=== PATIENT | male | born 1955 | race Caucasian/White ===

== ENCOUNTER 2017-08-14 09:33 | Emergency (ER) | payer BC ==
[~2017-08-14] VITALS: Ht 180.3 cm; Wt 90.7 kg
[~2017-08-14 09:33] MED LIST: ASPIRIN81 MG PO; CHANTIX1 EACH; DIOVAN HCT 1601 EACH PO; LEVOFLOXACIN500 MG PO; METRONIDAZOLE500 MG PO; TAMSULOSIN HCL0.4 MG PO
--- OUTSIDE RECORDS SUMMARY | 2017-08-14 09:37 | XMS REPORT | Clinical Summary ---
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 Disp. Refills Start End Date Status Date finasteride (PROSCAR) 5 Take 5 mg by mouth daily. Active mg tablet tamsulosin (FLOMAX) 0.4 Take 0.4 mg by mouth Active mg capsule,extended daily. release 24hr esomeprazole (NexIUM) 40 Take 40 mg by mouth as Active MG capsule needed. valsartan-hydrochlorothia TAKE ONE TABLET BY MOUTH 30 tablet 0 08/14/19 Discontin zide (DIOVAN-HCT) ONCE DAILY 16 17 ued 160-12.5 mg per tablet valsartan-hydrochlorothia TAKE ONE TABLET BY MOUTH 30 tablet 0 08/14/19 Discontin zide (DIOVAN-HCT) ONCE DAILY 17 17 ued 160-12.5 mg per tablet aspirin (ECOTRIN) 81 MG Take 81 mg by mouth 04/06/20 Discontin enteric coated tablet daily. 17 ued valsartan-hydrochlorothia Take 1 tablet by mouth 90 tablet 4 08/14/19 04/06/20 Discontin zide (DIOVAN-HCT) once daily. 17 17 ued 160-12.5 mg per tablet carvedilol (COREG) 3.125 Take 1 tablet (3.125 mg 60 tablet 0 04/06/20 04/06/20 Discontin MG tablet total) by mouth 2 (two) 17 17 ued times a day for 30 days. valsartan (DIOVAN) 160 MG Take 1 tablet (160 mg 30 tablet 0 04/07/20 04/06/20 Discontin tablet total) by mouth daily for 17 17 ued 30 days. atorvastatin (LIPITOR) 80 Take 1 tablet (80 mg 30 tablet 0 04/06/20 05/06/20 MG tablet total) by mouth nightly 17 17 for 30 days. clopidogrel (PLAVIX) 75 Take 1 tablet (75 mg 30 tablet 0 04/07/20 Discontin mg tablet total) by mouth daily for 17 17 ued 30 days. clopidogrel (PLAVIX) 75 Take 1 tablet (75 mg 30 tablet 4 04/07/20 mg tablet total) by mouth daily for 17 17 30 days. carvedilol (COREG) 3.125 Take 1 tablet (3.125 mg 60 tablet 4 04/06/20 05/06/20 MG tablet total) by mouth 2 (two) 17 17 times a day for 30 days. aspirin (ECOTRIN) 81 MG Take 1 tablet (81 mg 30 tablet 4 04/06/20 enteric coated tablet total) by mouth daily for 17 17 30 days. valsartan (DIOVAN) 160 MG Take 1 tablet (160 mg 30 tablet 4 04/07/20 05/07/20 tablet total) by mouth daily for 17 17 30 days. Active Problems Problem Noted Date Chest pain 05/06/2017 Hyperlipidemia 05/06/2017 Palpitations 05/06/2017 Non-ST elevation (NSTEMI) myocardial infarction 04/03/2017 Coronary artery disease involving knik coronary artery of knik heart 09/2016 without angina pectoris Essential hypertension 08/19/2016 PAD (peripheral artery disease) 08/19/2016 Encounters Date Type Specialty Care Team Description 05/06/2017 Office Visit Cardiology Bryant Qiu MD Coronary artery disease with angina pectoris, unspecified vessel or lesion type, unspecified whether knik or transplanted heart (Primary Dx); Essential hypertension; CAD S/P percutaneous coronary angioplasty 04/13/2017 Telephone Cardiology Bryant Qiu MD PER DR QIU PT CAN RETURN TO WORK IN 2 WEEKS. 04/05/2017 Procedure Pass Procedural Cardiology 04/05/2017 Surgery Procedural Cardiology Philip Trujillo MD Cv selective coronary angiography [39873 (CPT )] 04/03/2017 Hospital Intensive Care Aracely Lewis MD Non-ST elevation (NSTEMI) - Encounter Sean Salamanca MD myocardial infarction 04/06/2017 (Primary Dx); Unstable angina 08/13/2016 Office Visit Cardiology Byrant Qiu MD Essential hypertension (Primary Dx); Coronary artery disease involving knik coronary artery of knik heart without angina pectoris; PAD (peripheral artery disease) after 08/13/2016 Family History Medical History Relation Name Comments Heart disease Father Stroke Father COPD Paternal Grandfather Heart disease Paternal Grandmother Relation Name Status Comments Brother Father Mother Paternal Grandfather Paternal Grandmother Sister Social History Tobacco Use Types Packs/Day Years Used Date Current Every Day Smoker Cigarettes 0.5 45 Smokeless Tobacco: Never Used Tobacco Cessation: Ready to Quit: Yes; Counseling Given: Yes Alcohol Use Drinks/Week oz/Week Comments Yes 6 Cans of 4.8 beer 2 Shots of liquor Sex Assigned at Date Recorded Not on file Last Filed Vital Signs Vital Sign Reading Time Taken Blood Pressure 112/70 05/06/2017 9:05 AM PLASTIC BLOCK BOILER RELINER Pulse 73 05/06/2017 9:05 AM PLASTIC BLOCK BOILER RELINER Temperature 36.4 C (97.5 F) 04/06/2017 8:00 AM PLASTIC BLOCK BOILER RELINER Respiratory Rate 16 05/06/2017 9:05 AM PLASTIC BLOCK BOILER RELINER Oxygen Saturation 93% 04/06/2017 10:00 AM PLASTIC BLOCK BOILER RELINER Inhaled Oxygen - - Concentration Weight 90.7 kg (200 lb) 05/06/2017 9:05 AM PLASTIC BLOCK BOILER [employer]INER Height 180.3 cm (5' 11") 05/06/2017 9:05 AM PLASTIC BLOCK BOILER RELINER Body Mass Index 27.89 05/06/2017 9:05 AM PLASTIC BLOCK BOILER RELINER Plan of Treatment Date Type Specialty Care Team Description 10/28/2017 Office Visit Cardiology Bryant Qiu MD [address] [address] Health Maintenance Due Date Last Done Comments COLONOSCOPY 2003 ZOSTER VACCINE 2013 INFLUENZA VACCINE 12/15/2016 Implants Implanted Type Area Blood Donor Unit Assistant Device Expiration Model / Identifier Date Serial / Lot Stent Coronary Syst Synergy (Mr) Coronary N/A: N/A BSC 01/15/2018 [id number] 3.50mm X 16mm - [id number] Stents INTERVENTIONAL [id number] / Implanted: Qty: 1 on 04/05/2017 by CARDIOLOGY / Philip Trujillo MD [id number] Procedures Procedure Name Priority Date/Time Associated Diagnosis Comments CV PCI Routine 04/05/2017 Results for this 2:10 PM P[employer]IC BLOCK BOILER [employer]INER procedure are in the results section. CV SELECTIVE CORONARY Routine 04/05/2017 Results for this ANGIOGRAPHY 2:10 PM P[employer] BO[employer]ER [employer]INER procedure are in the results section. LA CRITICAL CARE, E/M Routine 04/04/2017 Results for this 30-74 MINUTES 2:38 PM PLASTIC BLOCK BOILER RELINER procedure are in the results section. ECHOCARDIOGRAM 2D STAT 04/04/2017 Results for this COMPLETE W MMODE SPECTRAL 12:19 PM PLASTIC BLOCK BOILER RELINER procedure are in the COLOR DOPPLER (83355) results section. after 08/13/2016 Results * ECG 12 lead (05/06/2017 9:06 AM) Only the most recent of 8 results within the time period is included. Component Value Ref Range Ventricular rate 68 Atrial rate 68 LA interval 172 QRSD interval 94 QT interval 414 QTC interval 440 P axis 1 38 QRS axis 1 -41 T wave axis 91 EKG impression Normal sinus rhythm-Left axis deviation-T wave abnormality, consider anterolateral ischemia-Abnormal ECG-In automated comparison with ECG of 05-APR-2017 21:17,-T wave inversion less evident in Lateral leads-QT has shortened- Specimen Performing Laboratory [facility] [address] [place] [address] * Estimated GFR (04/06/2017 4:00 AM) Only the most recent of 4 results within the time period is included. Component Value Ref Range GFR Non Af Amer >90 mL/min/1.73 m2 GFR Af Amer >90 mL/min/1.73 m2 Comment: Chronic kidney disease: <60 mL/min/1.73m2 Kidney failure: <15 mL/min/1.73m2 The estimated GFR is calculated from the IDMS-traceable Modification of Diet in Renal Disease Equation. The accuracy of the calculation is poor when the creatinine is normal. Calculated values >90 mL/min/1.73m2 are not reported. This equation has not been validated in children (<18 years), women, the elderly (>70 years), or ethnic groups other than Caucasians and Americans. Specimen Performing Laboratory Plasma specimen [facility] DEPARTMENT OF PATHOLOGY AND GENOMIC MEDICINE [address] [place] [id number] * CBC with platelet and differential (04/06/2017 4:00 AM) Only the most recent of 5 results within the time period is included. Component Value Ref Range WBC 7.35 4.50 - 11.00 k/uL RBC 4.33 (L) 4.40 - 6.00 m/uL HGB 13.5 (L) 14.0 - 18.0 g/dL HCT 39.6 (L) 41.0 - 51.0 % MCV 91.5 82.0 - 100.0 fL MCH 31.2 27.0 - 34.0 pg MCHC 34.1 31.0 - 37.0 g/dL RDW - SD 41.2 37.0 - 55.0 fL MPV 10.4 8.8 - 13.2 fL Platelet count 149 (L) 150 - 400 k/uL Nucleated RBC 0.00 /100 WBC Neutrophils 76.7 (H) 39.0 - 69.0 % Lymphocytes 15.8 (L) 25.0 - 45.0 % Monocytes 5.7 0.0 - 10.0 % Eosinophils 1.2 0.0 - 5.0 % Basophils 0.3 0.0 - 1.0 % Immature granulocytes 0.3Comment: "Immature granulocytes" 0.0 - 1.0 % (promyelocytes, myelocytes, metamyelocytes) Specimen Performing Laboratory Blood [facility] DEPARTMENT OF PATHOLOGY AND GENOMIC MEDICINE [address] [place], [place] [id number] * Phosphorus level (04/06/2017 4:00 AM) Only the most recent of 2 results within the time period is included. Component Value Ref Range Phosphorus 3.1 2.4 - 4.5 mg/dL Specimen Performing Laboratory Plasma specimen [facility] DEPARTMENT OF PATHOLOGY AND GENOMIC MEDICINE [address] [place] [id number] * Magnesium level (04/06/2017 4:00 AM) Only the most recent of 3 results within the time period is included. Component Value Ref Range Magnesium 1.9 1.6 - 2.4 mg/dL Specimen Performing Laboratory Plasma specimen [facility] DEPARTMENT OF PATHOLOGY AND GENOMIC MEDICINE [address] [place], [place] [id number] * Comprehensive metabolic panel (04/06/2017 4:00 AM) Only the most recent of 4 results within the time period is included. Component Value Ref Range Sodium 137 135 - 148 mEq/L Potassium 4.2 3.5 - 5.0 mEq/L Chloride 100 98 - 112 mEq/L CO2 21 (L) 24 - 31 mEq/L Anion gap 16 (H) 7 - 15 mEq/L Comment: Starting from August , anion gap calculation no longer incorporates potassium. Please note the change. BUN 11 8 - 23 mg/dL Creatinine 0.8 0.7 - 1.2 mg/dL Glucose 84 65 - 99 mg/dL Calcium 8.8 8.8 - 10.2 mg/dL Protein 5.7 (L) 6.3 - 8.3 g/dL Comment: 4.6-7.0 g/dL 1 week 4.4-7.6 g/dL 7 months-1year 5.1-7.3 g/dL 1-2 years 5.6-7.5 g/dL >3 years 6.0-8.0 g/dL 18-150 6.3-8.3 g/dL Albumin 3.1 (L) 3.5 - 5.0 g/dL A/G ratio 1.2 0.7 - 3.8 Alkaline phosphatase 48 40 - 129 U/L AST 26 10 - 50 U/L ALT 12 5 - 50 U/L Total bilirubin 0.6 0.0 - 1.2 mg/dL Specimen Performing Laboratory Plasma specimen [facility] DEPARTMENT OF PATHOLOGY AND GENOMIC MEDICINE [address] [place] [address] * Cv phlebotomist medical lab assistant procedure (04/05/2017 2:10 PM) Specimen Performing Laboratory [facility] [address] [place] [address] Narrative LM: patent LAD: 90% ISR prox LAD, 40% mid LAD. S/p LAD PCI with 3 x 15mm Synergy LANCE. LCx: minimal luminal irregularities RCA: minimal luminal irregularities Plan: Clopidogrel 600mg x1 in phlebotomist medical lab assistant Continue DAPT + statin F/u Dr Qiu in clinic Moderate sedation was administered with physician supervisionof patient consciousness, respiration, Oxygen saturation and CO2 monitoring, beginning [id number] ( time)for a total period of 64 minutes. I was physically present for the critical portions of all procedures performed during this episode of care. * POC ACT (04/05/2017 1:35 PM) Component Value Ref Range Activated clotting time, 388 seconds POC Specimen Performing Laboratory Blood * Anti Xa, unfractionated (04/05/2017 10:19 AM) Only the most recent of 5 results within the time period is included. Component Value Ref Range Anti Xa, unfractionated 0.39Comment: Therapeutic Range: 0.30 - 0.70 U/mL 0.30 - 0.70 U/mL Specimen Performing Laboratory Blood [facility] DEPARTMENT OF PATHOLOGY AND GENOMIC MEDICINE [address] [place] [address] * CRITICAL CARE (04/04/2017 2:38 PM) Narrative Aracely Lewis MD 04/04/20172:38 PM Critical Care Performed by: ARACELY LEWIS Authorized by: ARACELY LEWIS Critical care provider statement: Critical care time (minutes):50 Critical care time was exclusive of:Separately billable procedures and treating other patients and teaching time Critical care was necessary to treat or prevent imminent or life-threatening deterioration of the following conditions:Cardiac failure Critical care was time spent personally by me on the following activities:Blood draw for specimens, development of treatment plan with patient or surrogate, discussions with consultants, discussions with primary provider, evaluation of patient's response to treatment, examination of patient, interpretation of cardiac output measurements, obtaining history from patient or surrogate, ordering and performing treatments and interventions, ordering and review of laboratory studies, ordering and review of radiographic studies, pulse oximetry, re-evaluation of patient's condition, review of old charts and transcutaneous pacing Florencio 'yes' if you are taking over critical care for this patient from another provider.: no * Echocardiogram 2d complete with contrast (04/04/2017 12:19 PM) Specimen Performing Laboratory [facility] [address] [place] [address] Narrative Echocardiography Report [address] [place] [address] Pat.Name:Danica CAMPBELL.ID:[id number] .Date: 04/04/2017Refer.MD:SEAN SALAMANCA MD Exam Time: 7:54:00 AMStudy Type:Routine Echo Height:71inBSA: 2.12 m2 DOBAge:1955,61Y Sex: MALE BP:130/76HR: 62 bpm Sonogrphr: YAA Shrestha Pat. Stat.:Inpatient Room:[place] [address] Study Status:Final Echo Event ID:[id number] Order ID:[id number] Reason for Study:Ventricular Function after ACS - Re-eval of ventricular frunction following ACS during recovery phase when results will guide therapy History / Clinical:Chest Pain, Hypertension, Shortness of Breath, [place] Procedures:2D Echo, Colorflow Doppler, Portable, Strain, Stat, Intravenous Definity Contrast Race:White SUMMARY: LV size is normal. LV EF is lower limits of normal. Estimated EF is 50-54%. Regional wall motion abnormalities. RV size is normal. RV systolic function is normal. Diastolic dysfunction Grade I (Mild): Impaired relaxation with normal LV filling pressures. Estimated PA systolic pressure is 29 mmHg, assuming a mean RAP of 5 mmHg. FINDINGS: LV: LV size is normal. Concentric left ventricular remodeling. LVEF is lower limits of normal. Regional wall motion abnormalities. Estimated EF is 50-54%. LV global longitudinalstrain is mild to moderately impaired at -14.1%. RV: RV size is normal. RV systolic function is normal. LA: LA size is normal. RA: RA size is normal. AO: Aortic root diameter is normal. ALEX: No pericardial effusion. IAS:Interatrial septum is redundant. AV: No structural AV abnormalities noted. MV: Mild mitral annular calcification. PV: No structural PV abnormalities noted. A trace of pulmonic regurgitation. TV: No structural TV abnormalities noted. A trace of tricuspid regurgitation Braxton: Diastolic dysfunction Grade I (Mild): Impaired relaxation withnormal LV filling pressures. Other:Estimated PA systolic pressure is 29 mmHg, assuming a mean RAPof 5 mmHg. MEASUREMENTS: 2D Parasternal Long [place] LVOT 2.1 cmLA Ds 3.6 cm LVIDd4.6 cmIndex 2.2 cm/m Ao An2.5 cm LVIDs3.1 cmAo Rtd 4.1 cm Index1.9 cm/m LV%fs 32.6 % LV Otcb342.9 g(122-174) IVSd 1.2 cmLVM Index 106.1 g/m2 LVPWd1.3 cmRWT 0.6 LA Sng Plane LA Area 18.7 cm2(8.8-23.4) LA Vol52.9 ml Index25 ml/m LA LngAx 5.4 cm RA Sng Plane RA Area 14.5 cm2(8.3-19.5) RA Vol31.2 ml Index14.7 ml/m RA LngAx 5.9 cm WALL MOTION: RESTING WALL MOTION: Mid Anteroseptal, Apical Anterior, Apical Septal, Apical Inferior, Apical Lateral, Apical torrez are hypokinetic. Normal in all other torrez. Wall Index=1.4 Signed 04/04/2017 04:56 PM Nate Herrera M.D. Procedure Note Interface, Radiology Results In - 04/04/2017 4:56 PM PLASTIC BLOCK BOILER RELINER Echocardiography Report [address] [place] [address] Pat.Name: STEPHON CAMPBELL Pat.ID: [id number] .Date: 04/04/2017 Refer.MD: SEAN SALAMANCA MD Exam Time: 7:54:00 AM Study Type:Routine Echo Height: 71in BSA: 2.12 m2 Age: 1 1955,61Y Sex: MALE BP: 130/76 HR: 62 bpm Sonogrphr: YAA Shrestha Pat. Stat.:Inpatient Room: [place] [address] Study Status:Final Echo Event ID:[id number] Order ID: [id number] Reason for Study:Ventricular Function after ACS - Re-eval of ventricular frunction following ACS during recovery phase when results will guide therapy History / Clinical:Chest Pain, Hypertension, Shortness of Breath, [place] Procedures:2D Echo, Colorflow Doppler, Portable, Strain, Stat, Intravenous Definity Contrast Race: White SUMMARY: LV size is normal. LV EF is lower limits of normal. Estimated EF is 50-54%. Regional wall motion abnormalities. RV size is normal. RV systolic function is normal. Diastolic dysfunction Grade I (Mild): Impaired relaxation with normal LV filling pressures. Estimated PA systolic pressure is 29 mmHg, assuming a mean RAP of 5 mmHg. FINDINGS: LV: LV size is normal. Concentric left ventricular remodeling. LV EF is lower limits of normal. Regional wall motion abnormalities. Estimated EF is 50-54%. LV global longitudinal strain is mild to moderately impaired at -14.1%. RV: RV size is normal. RV systolic function is normal. LA: LA size is normal. RA: RA size is normal. AO: Aortic root diameter is normal. ALEX: No pericardial effusion. IAS: Interatrial septum is redundant. AV: No structural AV abnormalities noted. MV: Mild mitral annular calcification. PV: No structural PV abnormalities noted. A trace of pulmonic regurgitation. TV: No structural TV abnormalities noted. A trace of tricuspid regurgitation Braxton: Diastolic dysfunction Grade I (Mild): Impaired relaxation with normal LV filling pressures. Other: Estimated PA systolic pressure is 29 mmHg, assuming a mean RAP of 5 mmHg. MEASUREMENTS: 2D Parasternal Long [place] LVOT 2.1 cm LA Ds 3.6 cm LVIDd 4.6 cm Index 2.2 cm/m Ao An 2.5 cm LVIDs 3.1 cm Ao Rtd 4.1 cm Index 1.9 cm/m LV%fs 32.6 % LV Mass 224.9 g (122-174) IVSd 1.2 cm LVM Index 106.1 g/m2 LVPWd 1.3 cm RWT 0.6 LA Sng Plane LA Area 18.7 cm2 (8.8-23.4) LA Vol 52.9 ml Index 25 ml/m LA LngAx 5.4 cm RA Sng Plane RA Area 14.5 cm2 (8.3-19.5) RA Vol 31.2 ml Index 14.7 ml/m RA LngAx 5.9 cm WALL MOTION: RESTING WALL MOTION: Mid Anteroseptal, Apical Anterior, Apical Septal, Apical Inferior, Apical Lateral, Apical torrez are hypokinetic. Normal in all other torrez. Wall Index=1.4 Signed 04/04/2017 04:56 PM Nate Herrera M.D. * POC glucose (04/04/2017 5:57 AM) Component Value Ref Range POC glucose 82 65 - 99 mg/dL Comment: [facility] Notified RN Meter ID: [id number] Chemical Plant Manager: Eduardo Feldman Specimen Performing Laboratory [facility] DEPARTMENT OF PATHOLOGY AND GENOMIC MEDICINE [address] [facility] [place] [address] * Partial thromboplastin time, activated (04/04/2017 4:15 AM) Only the most recent of 2 results within the time period is included. Component Value Ref Range PTT 54.7 (H) 23.0 - 36.0 sec Comment: PTT therapeutic range for unfractionated heparin is 61.0-112.0 seconds which corresponds to Anti-Xa 0.3-0.7 U/ml. Specimen Performing Laboratory Blood [facility] DEPARTMENT OF PATHOLOGY AND GENOMIC MEDICINE [address] [place] [address] * Prothrombin time with INR (04/04/2017 4:15 AM) Only the most recent of 2 results within the time period is included. Component Value Ref Range Prothrombin time 14.5 12.0 - 15.0 sec INR 1.1 Comment: The International Normalized Ratio (INR) is a therapeutic monitoring tool for patients who are stable on oral anticoagulant therapy. An INR of 2.0-3.0 is suggested for deep vein thrombosis/pulmonary embolism. Specimen Performing Laboratory Blood [facility] DEPARTMENT OF PATHOLOGY AND GENOMIC MEDICINE [address] [place] [address] * Hemoglobin A1c (04/04/2017 4:15 AM) Component Value Ref Range Hemoglobin A1C 5.5 4.0 - 5.6 % Comment: HbA1c cutoffs for diagnosing diabetes: 4.0% - 5.6%=normal 5.7% - 6.4%=increased risk for diabetes (prediabetes) >=6.5%=diabetes Goals for glycemic control (ADA 2016) < 7.0% Target for non adults with diabetes. More or less stringent targets may be appropriate for individual patients. <7.5% Target for Children and adolescents with type 1 diabetes. Specimen Performing Laboratory Blood [facility] DEPARTMENT OF PATHOLOGY AND [facility] [address] [place] [address] * Troponin (04/04/2017 4:00 AM) Only the most recent of 3 results within the time period is included. Component Value Ref Range Troponin 1.20 (H) 0.00 - 0.30 ng/mL Comment: 0.30 - 1.49 ng/ml May indicate increased risk of acute coronary syndrome. >=1.5 ng/ml Consistent with acute myocardial infarction. The diagnostic value of a single normal or non-diagnostic result is questionable. Serial samples at 2-6 hour intervals are required to rule out acute myocardial injury. Specimen Performing Laboratory Plasma specimen [facility] DEPARTMENT OF PATHOLOGY AND [facility] MED[facility] [address] [place] [address] * Thyroid stimulating hormone (04/04/2017 4:00 AM) Component Value Ref Range TSH 1.62 0.27 - 4.20 uIU/mL Specimen Performing Laboratory Plasma specimen [facility] DEPARTMENT OF PATHOLOGY AND GENOMIC MEDICINE [address] [place] [address] * Lipid panel (04/04/2017 4:00 AM) Only the most recent of 2 results within the time period is included. Component Value Ref Range Cholesterol 159 <200 mg/dL Triglycerides 148 <150 mg/dL HDL cholesterol 23 (L) >40 mg/dL LDL cholesterol 108 (H)Comment: Result obtained by direct LDL <100 mg/dL measurement Lipid panel SeeBelow interpretation Comment: Total Cholesterol (mg/dL) <200 Desirable 200-239 Borderline-high >=240 High Triglycerides (mg/dL) <150 Normal 150-199 Borderline-high 200-499 High >=500 Very high HDL Cholesterol (mg/dL) <40 Low (male) <40 Low (female) LDL Cholesterol (mg/dL) <100 Optimal 100-129 Near or above optimal 130-159 Borderline-high 160-189 High >=190 Very high Risk Catergories that modify LDL goals. Risk Catergories LDL goal (mg/dL) CHD and CHD risk equivalent <100 (10-year risk >20%) Multiple (2+) risk factors <130 (10-year risk=<20%) 0-1 risk factors <160 (<10-year risk) Defining levels of lipids in metabolic syndrome Triglycerides >=150 mg/dL HDL Cholesterol Men <40 mg/dL Women <40 mg/dL Non-HDL cholesterol is a second target for therapy in persons with high triglycerides (>=200 mg/dL) Specimen Performing Laboratory Plasma specimen [facility] DEPARTMENT OF PATHOLOGY AND GENOMIC MEDICINE [address] [place] [address] * B natriuretic peptide (04/03/2017 7:13 PM) Component Value Ref Range BNP 145 (H) 0 - 100 pg/mL Specimen Performing Laboratory Blood [facility] DEPARTMENT OF PATHOLOGY AND GENOMIC MEDICINE [address] [place] [address] * XR Chest 1 Vw Portable (04/03/2017 5:37 PM) Specimen [facility]forming [facility] [address] [place] [address] Narrative EXAMINATION:XR CHEST 1 VW PORTABLE CLINICAL HISTORY:Chest Pain COMPARISON:To previous examination from 04/01/2015 IMPRESSION: The cardiomediastinal silhouette is normal in appearance. The lungs are clear. There is no evidence of consolidation, congestion, or pneumothorax. A pleural effusion is not present. Visualized skeletal structures demonstrate no definite abnormality. Negative examination. [id number] Procedure Note Hm Interface, Radiology Results Incoming - 04/03/2017 5:43 PM PLASTIC BLOCK BOILER RELINER EXAMINATION: XR CHEST 1 VW PORTABLE CLINICAL HISTORY: Chest Pain COMPARISON: To previous examination from 04/01/2015 IMPRESSION: The cardiomediastinal silhouette is normal in appearance. The lungs are clear. There is no evidence of consolidation, congestion, or pneumothorax. A pleural effusion is not present. Visualized skeletal structures demonstrate no definite abnormality. Negative examination. [facility] [id number] after 08/13/2016 Insurance Payer Benefit Subscriber ID Type Phone Address Plan / Group BCBS BCBS xxxxxxxxxxxx PPO CHOICE PPO[place] [address]
[2017-08-14] MEDS ORDERED: SODIUM CHLORIDE 0.9% 250ML 250 ML IV STA (09:48)
[2017-08-14] MEDS ORDERED: COREG3.125 MG PO (09:56)
[2017-08-14] MEDS ORDERED: FINASTERIDE5 MG PO (09:56)
[2017-08-14] MEDS ORDERED: DIOVAN160 MG PO (09:56)
[2017-08-14] MEDS ORDERED: PLAVIX75 MG PO (09:56)
[2017-08-14] MEDS ORDERED: ASPIRIN 81 MG CHEW TAB PO ONE (10:00)
[2017-08-14 10:43] LABS: BASOPHILS % 0.2 % (0.0-1.0); EOSINOPHILS # (AUTO) 0.1 (0.0-0.4); HEMATOCRIT 45.6 % (38.2-49.6); HEMOGLOBIN 16.5 g/dL (14.0-18.0); LYMPHOCYTES # (AUTO) 1.5 (1.0-3.2); LYMPHOCYTES % 17.8 % (18.0-39.1); MEAN CORPUSCULAR HEMOGLOBIN 33.9 pg (28-32); MEAN CORPUSCULAR HGB CONC 36.2 g/dL (31-35); MEAN CORPUSCULAR VOLUME 93.6 fL (81-99); MONOCYTES # (AUTO) 0.7 (0.2-0.8); MONOCYTES % 8.9 % (4.4-11.3); NEUTROPHILS % 71.6 % (38.7-80.0); PLATELET COUNT 195 x10e3/uL (140-360); RED BLOOD COUNT 4.87 x10e6/uL (4.3-5.7); RED CELL DISTRIBUTION WIDTH 12.8 % (11.7-14.4)
[2017-08-14 10:57] LABS: INR 1.01; PROTHROMBIN TIME 12.5 seconds (11.9-14.5)
--- NOTE | 2017-08-14 10:57 | Diagnostic Imaging Report ---
EXAMINATION: CHEST SINGLE (PORTABLE) INDICATION: \S\ERMD ORDER \S\[id number] \S\1000 \S\Y COMPARISON: Chest radiograph 10/24/2016 FINDINGS: AP view TUBES and LINES: None. LUNGS: Lungs are well inflated. Lungs are clear. There is no evidence of pneumonia or pulmonary edema. PLEURA: No pleural effusion or pneumothorax. HEART AND MEDIASTINUM: Calcified left hilar lymph nodes. The cardiomediastinal silhouette is unremarkable. BONES AND SOFT TISSUES: No acute osseous lesion. Soft tissues are unremarkable. UPPER ABDOMEN: No free air under the diaphragm. IMPRESSION: No acute thoracic abnormality. Signed by: DR. Flip Valenzuela MD on 08/14/2017 10:54 AM
[2017-08-14 10:58] LABS: PARTIAL THROMBOPLASTIN TIME 28.4 seconds (23.8-35.5)
[2017-08-14 11:06] LABS: ALANINE AMINOTRANSFERASE 9 IU/L (0-55); ALBUMIN 3.7 g/dL (3.5-5.0); ALBUMIN/GLOBULIN RATIO 1.2 (0.8-2.0); ALKALINE PHOSPHATASE 65 IU/L (40-150); ANION GAP 11.2 mmol/L (8-16); BLOOD UREA NITROGEN 14 mg/dL (7-26); BUN/CREATININE RATIO 13 (6-25); CALCIUM 9.5 mg/dL (8.4-10.2); CARBON DIOXIDE 26 mmol/L (22-29); CHLORIDE 103 mmol/L (98-107); CREATINE KINASE 41 IU/L (30-200); CREATININE, SERUM 1.08 mg/dL (0.72-1.25); EST GLOMERULAR FILTRATION RATE > 60 ML/MIN (60-); GLUCOSE 97 mg/dL (74-118); POTASSIUM 4.2 mmol/L (3.5-5.1); SODIUM 136 mmol/L (136-145)
[2017-08-14 11:20] LABS: CLARITY,URINE HAZY (CLEAR); COLOR,URINE AMBER (YELLOW); KETONES,URINE NEGATIVE (NEGATIVE); LEUKOCYTE ESTERASE ,URINE 1+ (NEGATIVE); NITRITE,URINE NEGATIVE (NEGATIVE); PROTEIN,URINE DIPSTICK TRACE (NEGATIVE)
[2017-08-14 11:21] LABS: BILIRUBIN,URINE NEGATIVE (NEGATIVE); URINE UROBILINOGEN 0.2 mg/dL (0.2 - 1)
[2017-08-14 11:24] LABS: BACTERIA,URINE FEW /HPF; EPITHELIAL CELLS,URINE FEW /LPF
[2017-08-14 11:25] LABS: THYROID STIMULATING HORMONE 0.633 uIU/mL (0.350-4.940)
== END 2017-08-14 12:08 | disposition home or self-care (01) ==
LOC: ER 09:33
DX: M25.561 Pain in right knee (principal); M71.21 Synovial cyst of popliteal space [Baker], right knee; R26.2 Difficulty in walking, not elsewhere classified
CPT/HCPCS: 36415; 71045; 80048; 80053; 81001; 82550; 82553; 83735; 84443; 84484; 85025; 85610; 85730; 93005; 93971; 99284; J7050